=== PATIENT | female | born 1970 | race Hispanic/Latino ===

== ENCOUNTER 2022-01-08 09:35 | Day surgery (SDC) | payer OTHER ==
[~2022-01-08 09:35] MED LIST: SODIUM CHLORIDE 0.9% 1000 ML 1,000 ML IV SCH; WATER FOR IRRIG STERILE 1,000 ML BOTTLE ONE; WATER FOR IRRIG STERILE 250 ML BOTTLE IR ONE
--- NOTE | 2022-01-08 10:06 | Anesthesia Day of Surgery ---
Anesthesia Day of Surgery - Day of Surgery Patient Examined: Yes Patient H&P Reviewed: Yes Patient is NPO: Yes
--- NOTE | 2022-01-08 10:07 | Anesthesia Consultation ---
Anesthesia Consult and Med Hx Date of service: 01/08/22 - Airway Anesthetic Teeth Evaluation: Good ROM Head & Neck: Adequate Mental/Hyoid Distance: Adequate Mallampati Class: Class I Intubation Access Assessment: Good - Pulmonary Exam CTA: Yes - Cardiac Exam Cardiac Exam: RRR - Pre-Operative Health Status ASA Pre-Surgery Classification: ASA3 Proposed Anesthetic Plan: MAC - Pulmonary Hx Smoking: Yes (1 1/2PPD X 20 YRS) Hx Asthma: Yes COPD: Yes Hx Pneumonia: No Hx Sleep Apnea: No (TRAVON PRE SCREEN HIGH RISK) - Cardiovascular System Hx Hypertension: No - Central Nervous System Hx Seizures: No CVA: No Hx Back Pain: Yes (AND NECK PAIN, cervical and lumbar herniated discs) Hx Psychiatric Problems: Yes - Gastrointestinal Hx Ulcer: Yes (2013) Hx Gastroesophageal Reflux Disease: Yes (Moderate, controlled w/ OTC antacids) - Endocrine Hx End Stage Renal Disease: No Hx Cirrhosis: (Hepatitis B ) Hx Insulin Dependent Diabetes: No Hx Non-Insulin Dependent Diabetes: (pre diabetes. BS-73) Hx Thyroid Disease: No - Hematic Hx Anemia: No - Other Systems Hx Cancer: No
[2022-01-08] MEDS ORDERED: WATER FOR IRRIG STERILE 250 ML BOTTLE IR ONE (10:29)
[2022-01-08] MEDS ORDERED: WATER FOR IRRIG STERILE 1,000 ML BOTTLE ONE (10:30)
[2022-01-08] MEDS ORDERED: LIDOCAINE MPF (2%) 20 MG/1 ML VIAL 5 ML ONE (10:40)
[2022-01-08] MEDS ORDERED: propofoL 200 MG/20 ML VIAL IV ONE ×2 (10:40→10:50)
--- NOTE | 2022-01-08 11:05 | Short Stay Summary ---
Short Stay Documentation Date of service: 01/08/22 Narrative H&P: The patient presents for diagnostic colonoscopy for unexplained diarrhea. She also has a hx of colon polyps. - History Past Medical History: COPD Past Surgical History: hysterectomy Social history: smoking - Allergies and Medications Current Medications: Allergies No Known Allergies Allergy (Verified 12/29/14 10:48) Home Medications Medication Instructions Recorded Confirmed Last Taken Type Albuterol Sulfate [Proventil HFA] 1 - 2 puff IH Q4H PRN 09/11/14 03/20/16 3 Days Ago History ~03/17/16 Sertraline [Zoloft] 50 mg PO QDAY 01/16/15 03/20/16 03/19/16 21:00 History traMADoL [Ultram 50 MG tab] 50 mg PO PRN PRN 01/16/15 03/20/16 6 Months Ago History ~09/20/15 Soy Isofla/Blk Cohosh/Mag Bark 155 mg PO DAILY 07/03/15 03/20/16 6 Months Ago History [Estroven 155 mg Capsule] ~09/20/15 HYDROcodone/APAP 10-325 [[place] 7.5 tab PO PRN PRN 09/04/15 05/15/16 2 Days Ago History 10-325 mg TAB] ~05/13/16 Fluticasone/Salmeterol [Advair 1 puff IH PRN PRN 09/12/15 03/20/16 4 Months Ago History Diskus 100-50 mcg] ~11/19/15 Proair Respiclick 1 puff IH DAILY 09/12/15 05/15/16 1 Week Ago History ~05/08/16 Tiotropium [Spiriva] 1 puff IH PRN PRN 09/12/15 03/20/16 4 Months Ago History ~11/19/15 Famotidine [Pepcid] 20 mg PO DAILY 03/13/16 05/15/16 05/14/16 23:00 History Metformin HCl [Glucophage] 500 mg PO DAILY 03/13/16 03/20/16 1 Month Ago History ~02/18/16 Active Medications Sodium Chloride (Nacl 0.9% 1000 Ml) 1,000 mls @ 50 mls/hr IV DIRECT JUDAH Stop: 01/08/22 20:00 - Physical exam General appearance: no acute distress, well-nourished Integumentary: no rash, no growths, no abnormal pigmentation HEENT: Atraumatic, PERRLA, EOMI, Mucous membr. moist/pink Lungs: Clear to auscultation, Normal air movement Breasts: deferred Heart: Regular rate, Normal S1, Normal S2, No murmurs Gastrointestinal: normoactive bowel sounds, no tenderness, no distended, no masses, no guarding, obese Female Genitourinary: deferred Rectal Exam: normal rectal tone, no tenderness, no hemorrhoids, no mass Extremities: no ischemia, pulses intact, pulses symmetrical, No edema, normal temperature, normal color, Full ROM Neurological: Normal gait, Normal speech, Strength at 5/5 X4 ext, Normal tone, Sensation intact, Cranial nerves 3-12 NL - Brief post op/procedure progress note Date of procedure: 01/08/22 Findings: see dictation Estimated blood loss: none Pathology: list (right colon biopsies for microscopic colitis) Specimen disposition: to lab Condition: stable - Disposition Condition at discharge: Good Disposition: 01 HOME / SELF CARE / HOMELESS - Discharge Diagnoses (1) Diarrhea Status: Acute Short Stay Discharge Plan Activity: other (no driving for 24 hours.) Weight Bearing Status: Full Weight Bearing Diet: regular Follow up with: PRIMARY CAREMD [Primary Care Provider] - 7 Days Forms: [facility]
--- NOTE | 2022-01-08 11:09 | Operative Report ---
Operative Report Operative Report: Date of procedure: 01/08/2022 Preprocedure diagnosis: Unexplained diarrhea. Post procedure diagnosis: Normal study. Procedure: Colonoscopy to the cecum with right colon biopsies for microscopic colitis. Endoscopist: Dr. Ragsdale Anesthesia: Monitored anesthesia care per anesthesia department Estimated blood loss: 0 Medications: Monitored anesthesia care. See separate report by anesthesia for details. After careful discussion of the nature and purpose of the procedure as well as details of the technique risks benefits and alternatives the patient gave consent. Please see recent history and physical from the office. The patient was placed in the left lateral decubitus position and medicated per anesthesia. A rectal exam was performed sphincter tone was normal there were no masses palpable. The [place] 570 scope was passed transanally and advanced under continuous direct vision without difficulty to the cecum. The colon was well prepared. The cecum was normal. The ascending colon was normal and on forward and retroflexed views. The transverse colon, descending colon, and sigmoid colon were normal. Biopsies were taken in the right colon to exclude microscopic colitis. The rectum was normal on forward and retroflexed views. The procedure was well-tolerated overall and the patient was observed in recovery. Conclusions: Normal colonoscopy to the cecum. No recurrent polyps. Plan: Await pathology. Patient will call the office in approximately 10 days for discussion. Repeat colonoscopy in 5 years due to history of colon polyps. Signed electronically: Chapito Ragsdale M.D.
--- NOTE | 2022-01-08 13:35 | Post Anesthesia Evaluation ---
- Post Anesthesia Evaluation Patient Participated: Yes Airway Patent: Yes Stable Respiratory Function: Yes Nausea/Vomiting: No Temp > 96.8F: Yes Pain Manageable: Yes Adequeate Hydration: Yes Anesthesia Complications: No
[2022-01-08 16:07] VITALS: BP 124/68
== END 2022-01-08 11:30 | disposition home or self-care (01) ==
LOC: GIO 09:35
PROVIDERS: ATTEND Internal Medicine Gastroenterology
DX: R19.7 Diarrhea, unspecified (principal); K63.89 Other specified diseases of intestine; K29.80 Duodenitis without bleeding; E78.00 Pure hypercholesterolemia, unspecified; J44.9 Chronic obstructive pulmonary disease, unspecified; M19.90 Unspecified osteoarthritis, unspecified site; M79.7 Fibromyalgia; E11.9 Type 2 diabetes mellitus without complications; F32.9 Major depressive disorder, single episode, unspecified; F41.9 Anxiety disorder, unspecified; F17.210 Nicotine dependence, cigarettes, uncomplicated; K21.9 Gastro-esophageal reflux disease without esophagitis; Z86.010 Personal history of colon polyps; Z79.899 Other long term (current) drug therapy; Z79.84 Long term (current) use of oral hypoglycemic drugs; Z98.1 Arthrodesis status; Z90.710 Acquired absence of both cervix and uterus; Z90.721 Acquired absence of ovaries, unilateral; Z98.890 Other specified postprocedural states
CPT/HCPCS: 45380; 88305; J2704; J7030